=== PATIENT | female | born 1970 | race Caucasian/White ===

== ENCOUNTER → 2021-09-19 | Outpatient (CLI) | payer BC ==
[2021-09-19 12:55] VITALS: BP 138/89; PULSE 79; RESP 13; TEMP 97.4
--- NOTE | 2021-09-19 13:40 | P.GSHP ---
History of Present Illness H&P Date: 09/19/21 Chief Complaint: abnormal right breast mammogram Angelica is a 51-year-old white female seen in consultation for Clarice Liao regarding the radiographic abnormality of the right breast. [place] [address] which revealed architectural dist ortion in the right breast at the 1 o'clock position. There was a suggestion of an irregular spiculated mass. [place] subsequently [place] [address]. A possible area of 1.2 cm distortion in the posterior 1 o'clock position right breast persisted. Ultrasound evaluation was then recommended. Ultrasound of the right breast was performed and [address]. No discrete solid or cystic area was identified. Patient does not feel any discrete lumps masses or not his of concern in either breast. She states she does feel some pulling near the nipple in the right breast. She has never had any surgery on her breast in the past. She is not having any breast biopsies in the past. She is not complaining of any recent trauma or infection in the breast. She is not complaining of any nipple discharge or skin changes of the breast. Caffeine: 2 cups/day nicotine: stopped 10 years ago, used to smoke 1/PPD for 20 years chocolate: none BCP: stopped 20 years ago, used them for about 10 years hormones: none Family History: patient skin cancer on foot 2 brothers; skin cancer mother: skin cancer paternal aunt: breast cancer Hormonal History: menarche: 13 G0 menopause: periods still regular hormones: none Surgical History: tonsil foot done in office wisdom teeth Medical History: HTN Social History: Imaging: Negative, stopped 10 years ago Alcohol: weekends, 20 beers on weekend drugs: none - Constitutional Constitutional: Denies chills, Denies fever - EENT Eyes: denies blurred vision, denies pain Ears: deny: decreased hearing, tinnitus Ears, nose, mouth and throat: Denies headache, Denies sore throat - Breasts Breasts: bilateral: as per HPI - Cardiovascular Cardiovascular: Denies chest pain, Denies shortness of breath - Respiratory Respiratory: Denies cough, Denies 7 - Genitourinary (Female) Genitourinary: Denies dysuria, Denies hematuria - Menstruation Menstruation: Reports period normal - Musculoskeletal Musculoskeletal: Denies myalgias - Integumentary Integumentary: Reports as per HPI - Neurological Neurological: Denies numbness, Denies weakness - Psychiatric Psychiatric: Denies anxiety, Denies depression - Endocrine Endocrine: Denies fatigue, Denies weight change - Hematologic/Lymphatic Comment: baby aspirin daily - Allergic/Immunologic Allergic/Immunologic: Reports as per HPI Past Medical History Past Medical History: Cancer, Hypertension Additional Past Medical History / Comment(s): skin ca History of Any Multi-Drug Resistant Organisms: None Reported Past Surgical History: Tonsillectomy Additional Past Surgical History / Comment(s): skin ca left foot 2019, tonsillectomy 1975 Past Anesthesia/Blood Transfusion Reactions: No Reported Reaction Smoking Status: Former smoker - Past Family History Mother Family Medical History: Cancer Additional Family Medical History / Comment(s): skin ca Medications and Allergies Home Medications Medication Instructions Recorded Confirmed Type Aspirin [Adult Low Dose Aspirin EC] 81 mg PO DAILY 09/19/21 09/19/21 History lisinopriL 10 mg PO DAILY 09/19/21 09/19/21 History Allergies Allergy/AdvReac Type Severity Reaction Status Date / Time No Known Allergies Allergy Verified 09/19/21 12:43 Surgical - Exam Vital Signs Temp Pulse Resp BP Pulse Ox 97.4 F L 79 13 138/89 98 09/19/21 12:47 09/19/21 12:47 09/19/21 12:47 09/19/21 12:47 09/19/21 12:47 BMI: 22.8 - General no distress - Eyes normal ocular movement - Neck trachea midline - Respiratory normal respiratory effort, clear to auscultation - Cardiovascular Rhythm: regular Heart Sounds: normal: S1, S2 - Abdomen Abdomen: soft - Integumentary normal turgor - Neurologic no disoriented, no combative - Musculoskeletal normal gait, normal posture - Psychiatric oriented to time, oriented to person, oriented to place, speech is normal, memory intact Breast Exam: BRA: 36C Inspection: Bilateral grade 1/2 ptosis Palpation: Right breast: Multiple positional exam no discrete dominant masses or nodules of concern Right axilla: No adenopathy of concern Left breast: Positional exam fibrocystic changes no dominant masses or nodules of concern Left axilla: No adenopathy of concern Results Radiographs reviewed in detail with Dr. Stern Assessment and Plan Assessment: Impression: Abnormal right breast mammogram Fibrocystic breast changes Family history of cancer Plan: 3-D stereo biopsy right breast Follow up after 3-D stereo biopsy Cc: Clarice Bennett, Dr. Miguel Angel Osman
== END ==
LOC: WWCWWP 12:37
PROVIDERS: ATTEND Surgery
DX: N60.12 Diffuse cystic mastopathy of left breast (principal); R92.8 Other abnormal and inconclusive findings on diagnostic imaging of breast; Z80.3 Family history of malignant neoplasm of breast; I10 Essential (primary) hypertension; Z87.891 Personal history of nicotine dependence

== ENCOUNTER → 2021-10-07 | Outpatient (CLI) | payer BC ==
[2021-10-07 15:53] VITALS: BP 174/96; PULSE 75; RESP 18; TEMP 98.5
--- NOTE | 2021-10-07 16:59 | P.PN ---
Subjective Progress Note Date: 10/07/21 Principal diagnosis: right breast stage IA invasive ductal carcinoma Angelica is a 51-year-old white female seen in consultation for Clarice Liao regarding the radiographic abnormality of the right breast. [place] [address] which revealed architectural distortion in the right breast at the 1 o'clock position. There was a suggestion of an irregular spiculated mass. She subsequently [place] [address]. A possible area of 1.2 cm distortion in the posterior 1 o'clock position right breast persisted. Ultrasound evaluation was then recommended. Ultrasound of the right breast was performed [place] [address]. No discrete solid or cystic area was identified. Patient does not feel any discrete lumps masses or not his of concern in either breast. She states she does feel some pulling near the nipple in the right breast. She has never had any surgery on her breast in the past. She is not having any breast biopsies in the past. She is not complaining of any recent trauma or infection in the breast. She is not complaining of any nipple discharge or skin changes of the breast. She underwent an ultrasound core biopsy on 10-02-21 which was + for G1 invasive ductal cancer.T1N0M0 ER+Pr+Her2-, stage IA. She tolerated the procedure without difficulty. Caffeine: 2 cups/day nicotine: stopped 10 years ago, used to smoke 1/PPD for 20 years chocolate: none BCP: stopped 20 years ago, used them for about 10 years hormones: none Family History: patient skin cancer on foot 2 brothers; skin cancer mother: skin cancer paternal aunt: breast cancer Hormonal History: menarche: 13 G0 menopause: periods still regular hormones: none Surgical History: tonsil foot done in office wisdom teeth Medical History: HTN Social History: Imaging: Negative, stopped 10 years ago Alcohol: weekends, 20 beers on weekend drugs: none - Constitutional Constitutional: Denies chills, Denies fever - EENT Eyes: denies blurred vision, denies pain Ears: deny: decreased hearing, tinnitus Ears, nose, mouth and throat: Denies headache, Denies sore throat - Breasts Breasts: bilateral: as per HPI - Cardiovascular Cardiovascular: Denies chest pain, Denies shortness of breath - Respiratory Respiratory: Denies cough, Denies 7 - Genitourinary (Female) Genitourinary: Denies dysuria, Denies hematuria - Menstruation Menstruation: Reports period normal - Musculoskeletal Musculoskeletal: Denies myalgias - Integumentary Integumentary: Reports as per HPI - Neurological Neurological: Denies numbness, Denies weakness - Psychiatric Psychiatric: Denies anxiety, Denies depression - Endocrine Endocrine: Denies fatigue, Denies weight change - Hematologic/Lymphatic Comment: baby aspirin daily - Allergic/Immunologic Allergic/Immunologic: Reports as per HPI Objective - Vital Signs Vital signs: Vital Signs Temp 98.5 F 10/07/21 15:51 Pulse 75 10/07/21 15:51 Resp 18 10/07/21 15:51 BP 174/96 10/07/21 15:51 Pulse Ox 99 10/07/21 15:51 Intake & Output 10/06/21 10/07/21 10/07/21 18:59 06:59 18:59 Weight 68.039 kg - Constitutional General appearance: Present: cooperative - EENT Eyes: Present: EOMI ENT: Present: hearing grossly normal - Neck Neck: Present: normal ROM - Integumentary Integumentary Comment(s): Mild ecchymosis at biopsy site Assessment and Plan Assessment: Impression: Stage IA right breast invasive ductal carcinoma T1 N0 M0 ER/WA positive HER-2/trse negative G1 Plan: 1. Genetic testing 2. Bilateral breast MRI 3. Presentation of case at tumor board 4. Treatment options were discussed with the patient surgical options are lumpectomy plus or radiation versus mastectomy plus or minus reconstruction. At this time the patient would prefer a lumpectomy. The patient will be seen following her genetic testing and bilateral breast MRI and presentation of case at tumor board. At the present time we are going to obtain a date to proceed with most likely needle localization of the right breast cancer, lumpectomy, possible onco-plastic tissue transfer, sentinel node injection, sentinel node biopsy, possible axillary node dissection. Risk and benefits of the procedures were discussed with the patient and her sister the understand and wish to proceed.
== END ==
LOC: WWCWWP 15:34
PROVIDERS: ATTEND Surgery
DX: C50.911 Malignant neoplasm of unspecified site of right female breast (principal); I10 Essential (primary) hypertension; Z17.0 Estrogen receptor positive status [ER+]; Z87.891 Personal history of nicotine dependence

== ENCOUNTER → 2021-10-15 | Outpatient (CLI) | payer BC ==
--- NOTE | 2021-10-17 07:06 | BMR ---
EXAMINATION TYPE: MR breast BILAT wo/w con DATE OF EXAM: 10/15/2021 COMPARISON: Prior outside mammogram August 05, 2021 BI-RADS 0. Diagnostic outside right breast mammogr am August 12, 2021 BI-RADS 0. Diagnostic outside right breast ultrasound BI-RADS 1. Also note BI-RADS 4 for recent diagnostic mammogram. HISTORY: Right Breast Cancer on outside biopsy recently October 02, 2021 invasive ductal carcinoma.. TECHNIQUE: A series of fat and water weighted images in the long and short axis views of both breasts are obtained in conjunction with dynamic contrast MRI with subtraction technique. The patient was i njected with 7.5 mL intravenous Gadavist gadolinium contrast. Three-dimensional and additional post processing imaging is created on independent workstation and reviewed during official interpretation of this study. FINDINGS: Extremely dense fibroglandular tissue bilaterally is redemonstrated. T2 and STIR weighted i mages show no significant cystic lesions or focal fluid collections in either breast. There is no pauline picious axillary adenopathy seen bilaterally. Dynamic postcontrast imaging shows mild background enha ncement bilaterally. Delayed dynamic imaging shows no suspicious internal mammary adenopathy. With regards to the left breast. There is no pathologic enhancement or enhancing masses greater than 5 mm small round enhancing focus lateral upper left breast image 873 series 701 slightly stands out b ut size suggests benign etiology. Additional occasional tiny smaller foci of enhancement are present. No abnormal skin thickening. Chest wall is intact. With regards to the right breast. There is spiculated enhancing lesion measuring approximately 1.3 x 1.2 cm with artifact from biopsy clip along the medial margin in the upper slightly inner aspect terri esponding to 1:00 lesion on ultrasound approximately 6 cm distance from nipple corresponding to new b iopsy-proven malignancy. There is a smaller oval well-circumscribed enhancing 6 mm lesion also in the upper and inner quadrant more posterior in location more medial and superior location image 91 serie s 701 T1 hypointensity and T2 hyperintensity. This is slightly more prominent in size versus smaller areas of nodularity and enhancement does show some areas of washout. No abnormal skin thickening is s een. Chest wall is intact. No suspicious incidental findings. IMPRESSION: MRI findings correlate with recent ultrasound, spiculated malignancy in the right breast upper slight inner aspect measuring near 1.3 cm long axis. Nonspecific enhancing round well-circumscr ibed 7 mm focus in close proximity to the biopsy-proven cancer No convincing MRI evidence for invasiv e malignancy in the left breast. BI-RADS 6 biopsy-proven cancer right breast. BI-RADS 2 benign findings left breast. Recommendation: Second look ultrasound targeting the 7 mm round enhancing lesion posterior the inner upper left breast just superior and medial to the biopsy proven neoplasm if this will change manageme nt.
== END | disposition home or self-care (01) ==
LOC: RADMRIMAIN 07:56
PROVIDERS: ATTEND Surgery
DX: C50.911 Malignant neoplasm of unspecified site of right female breast (principal); C50.912 Malignant neoplasm of unspecified site of left female breast
CPT/HCPCS: 77049; C8937; A9585

== ENCOUNTER → 2021-11-04 | Outpatient (CLI) | payer BC ==
--- NOTE | 2021-11-05 12:58 | USB ---
Reason for Exam: MRI abnormality. Patient History: 10/02/2021, Ultrasound-Guided Core Biopsy on the Right side. Risk Values: Kyra 5 year model risk: 0.8%. NCI Lifetime model risk: 6.7%. Technique: Method: Targeted. Prior Study Comparison: 07/24/2020 Bilateral MG screening mammo w CAD - 2, [facility]. 08/05/2021 Bilateral MG screening mammo w CAD - 2, [facility]. 08/12/2021 Right MG 3D diag mammo w/cad RT - 2, [facility]. Findings: Finding 1: Mass. Laterality: Right. Size 6 x 4 x 6 mm. 1 O'clock Quadrant: Upper inner. 12 cm cm from nipple. Shape: Irregular. Orientation: Not Parallel. Margin: Spiculated. The patient's 10/15/2021 MRI is reviewed. Second Look targeted ultrasound is performed at the 1:00 position. We note the patient's biopsy proven malignancy at the 1:00 site. Approximately 4.9 cm located more peripherally, 12 cm from the nipple, there is a 6 x 6 x 4 mm vertically oriented hypoechoic lesion that is highly suspicious and for which biopsy is recommended. Overall Assessment: Suspicious, BI-RAD 4 Management: Ultrasound Core Biopsy of the right breast. 1. After second look ultrasound, we find a 6 mm lesion 12 cm from the nipple at 1:00 that appears to correspond to the suspicious area on MRI. The more centrally located 1:00 lesion corresponds to biopsy-proven breast cancer. On ultrasound, there is approximately 5 cm of separation. Biopsy of this smaller second area is recommended. Electronically signed and approved by: Zahraa Haddad M.D. Radiologist
== END | disposition home or self-care (01) ==
LOC: RADUSWWP 12:21
PROVIDERS: ATTEND Surgery
DX: R92.8 Other abnormal and inconclusive findings on diagnostic imaging of breast (principal)
CPT/HCPCS: 77065; 19083; 76642; A4648

== ENCOUNTER → 2021-11-14 | Outpatient (CLI) | payer BC ==
[2021-11-14 16:15] VITALS: BP 159/96; PULSE 82; RESP 16; TEMP 98.5
--- NOTE | 2021-11-14 16:50 | P.PN ---
Subjective Progress Note Date: 11/14/21 Principal diagnosis: Focal invasive ductal carcinoma of the right breast right breast stage IA invasive ductal carcinoma Angelica is a 51-year-old white female seen in consultation for Clarice Liao regarding the radiographic abnormality of the right breast. [place] [address] which revealed architectural distortion in the right breast at the 1 o'clock position. There was a suggestion of an irregular spiculated mass. She subsequently [place] [address]. A possible area of 1.2 cm distortion in the posterior 1 o'clock position right breast persisted. Ultrasound evaluation was then recommended. [place] [address]. No discrete solid or cystic area was identified. Patient did not feel any discrete lumps masses or nodules of concern in either breast. She states she does feel some pulling near the nipple in the right breast. She has never had any surgery on her breast in the past. She is not having any breast biopsies in the past. She is not complaining of any recent trauma or infection in the breast. She is not complaining of any nipple discharge or skin changes of the breast. She underwent an ultrasound core biopsy on 10-02-21 which was + for G1 invasive ductal cancer.T1N0M0 ER+Pr+Her2-, stage IA. She tolerated the procedure without difficulty. [place] [address]. This revealed a spiculated enhancing lesion in the right breast as well as a smaller oval well- circumscribed 6 mm lesion in the upper inner quadrant more posterior. [place] [address] and was positive for invasive well-differentiated ductal carcinoma. This was a G1 ER/WA positive HER-2/tres negative tumor. Secondary to 2 primaries in the same breast the concern was entertained for a mastectomy rather than a lumpectomy. No lesions of concern were identified in the left breast. Her case was presented at tumor board on 10-28-21. The results are consistent with multifocal disease in the right breast. She had genetic testing done which was negative. Caffeine: 2 cups/day nicotine: stopped 10 years ago, used to smoke 1/PPD for 20 years chocolate: none BCP: stopped 20 years ago, used them for about 10 years hormones: none Family History: patient skin cancer on foot 2 brothers; skin cancer mother: skin cancer paternal aunt: breast cancer Hormonal History: menarche: 13 G0 menopause: periods still regular hormones: none Surgical History: tonsil foot done in office wisdom teeth Medical History: HTN Social History: Imaging: Negative, stopped 10 years ago Alcohol: weekends, 20 beers on weekend drugs: none - Constitutional Constitutional: Denies chills, Denies fever - EENT Eyes: denies blurred vision, denies pain Ears: deny: decreased hearing, tinnitus Ears, nose, mouth and throat: Denies headache, Denies sore throat - Breasts Breasts: bilateral: as per HPI - Cardiovascular Cardiovascular: Denies chest pain, Denies shortness of breath - Respiratory Respiratory: Denies cough - Genitourinary (Female) Genitourinary: Denies dysuria, Denies hematuria - Menstruation Menstruation: Reports period normal - Musculoskeletal Musculoskeletal: Denies myalgias - Integumentary Integumentary: Reports as per HPI - Neurological Neurological: Denies numbness, Denies weakness - Psychiatric Psychiatric: Denies anxiety, Denies depression - Endocrine Endocrine: Denies fatigue, Denies weight change - Hematologic/Lymphatic Comment: baby aspirin daily - Allergic/Immunologic Allergic/Immunologic: Reports as per HPI Objective - Vital Signs Vital signs: Vital Signs Temp 98.5 F 11/14/21 16:13 Pulse 82 11/14/21 16:13 Resp 16 11/14/21 16:13 BP 159/96 11/14/21 16:13 Pulse Ox 99 11/14/21 16:13 FiO2 Intake & Output 11/13/21 11/14/21 11/14/21 18:59 06:59 18:59 Weight 68.039 kg - Exam BMI: 22.8 - Constitutional General appearance: Present: cooperative - EENT Eyes: Present: EOMI - Neck Neck: Present: normal ROM - Respiratory Respiratory: bilateral: CTA - Cardiovascular Rhythm: regular Heart sounds: normal: S1, S2 - Gastrointestinal General gastrointestinal: Present: soft - Integumentary Integumentary: Present: normal turgor - Musculoskeletal Musculoskeletal: Present: gait normal - Psychiatric Psychiatric: Present: A&O x's 3, appropriate affect, intact judgment & insight - Additional findings Additional findings: Breast Exam: BRA: 36C Inspection: biopsy sites clean and dry Palpation not re done Assessment and Plan Assessment: Impression: multifocal invasive right breast cancer Plan: appointment with plastic surgery/ consideration of mastectomy with reconstruction consider nipple sparing mastectomy and right sentinel node injection and sentinel node biopsy possible axillary node dissection CC: Dr. Osman
== END ==
LOC: WWCWWP 15:52
PROVIDERS: ATTEND Surgery
DX: C50.911 Malignant neoplasm of unspecified site of right female breast (principal); I10 Essential (primary) hypertension

== ENCOUNTER 2021-12-02 06:47 | Day surgery (SDC) | payer BC ==
[2021-11-27 10:16] VITALS: BMI 22.8
[~2021-12-02 06:47] MED LIST: DEXAMETHASONE SOD PHOSPHATE 4 MG/ML 1 ML VIAL IV ONE; HEPARIN SODIUM,PORCINE/PF 5,000 UNIT/0.5 ML SYRINGE SQ PRN; LACTATED RINGERS 1,000 ML IV SCH; LIDOCAINE 1% (10MG/ML) FOR IV START INTRADERMA PRN; ONDANSETRON 4 MG/2 ML VIAL IVP ONE; Pre Op ABX Message 1 EACH MISC MISCELLANE ONE; SCOPOLAMINE 1 MG/72 HR PATCH TRANSDERM ONE
[2021-12-02] MEDS ORDERED: METOCLOPRAMIDE 5 MG/ML 2 ML VIAL IVP PRN (07:00)
[2021-12-02] MEDS ORDERED: MIDAZOLAM 2 MG/2 ML VIAL IVP ONE (08:27)
--- NOTE | 2021-12-02 08:27 | NM ---
EXAMINATION TYPE: NM sentinel node injection DATE OF EXAM: 12/02/2021 COMPARISON: NONE HISTORY: Breast cancer TECHNIQUE AND FINDINGS: The procedure of sentinel lymph node injection was explained to the patient. The benefits, alternatives, and risks were discussed. An informed consent was then obtained. Overlying skin is cleaned with sterile alcohol. Following this, 543 uCi Tc99m Tilmanocept was inject ed in the upper outer aspect of the right nipple intradermally. The patient tolerated the procedure well without any immediate complication. The patient was kept in the radiology department for short stay after the procedure and then taken to surgery for surgical p rocedure what is presumed intraoperative gamma probe will be used for sentinel lymph node detection. IMPRESSION: Right breast radiotracer injection for sentinel node localization as above.
--- NOTE | 2021-12-02 08:45 | P.NAPBC ---
[facility] Queries - [facility] Queries Was patient's case review presented at [facility] tumor board? If no, comment.: Yes Was patient's pathology reviewed at [facility]? If no, comment.: Yes Was breast conservation surgery offered? If no, comment.: Yes (multifocal) Was sentinel node biopsy offered? If no, comment.: Yes Was diagnosis confirmed by percutaneous core biopsy? If no, comment.: Yes Is patient mastectomy patient?: Yes Was a preop referral to reconstructive surgeon offered?: Yes [facility] Comments: stage IA/ multifocal tumor right breast Clinical Stage: stage IA
[2021-12-02] MEDS ORDERED: SUCCINYLCHOLINE CHLORIDE 100 MG/5 ML SYR IV ONE (08:46)
[2021-12-02] MEDS ORDERED: fentaNYL (PF) 50 MCG/ML 2 ML AMP ONE (08:46)
[2021-12-02] MEDS ORDERED: KETAMINE 10 MG/ML 20 ML VIAL ONE (08:46)
[2021-12-02] MEDS ORDERED: GLYCOPYRROLATE 0.2 MG/ML 2 ML VIAL ONE (08:46)
[2021-12-02] MEDS ORDERED: PROPOFOL 10 MG/ML 20 ML VIAL IV ONE (08:46)
[2021-12-02] MEDS ORDERED: LIDOCAINE 2% INJ 20 MG/ML (2 ML VIAL) ONE (08:46)
[2021-12-02] MEDS ORDERED: MIDAZOLAM 2 MG/2 ML VIAL ONE (08:46)
[2021-12-02] MEDS ORDERED: NEOSTIGMINE 1 MG/ML 10 ML VIAL ONE (08:46)
[2021-12-02] MEDS ORDERED: ROCURONIUM 10 MG/ML (5 ML VIAL) IV ONE (08:46)
[2021-12-02] MEDS ORDERED: ceFAZolin 1,000 MG VIAL IVPB ONE (08:51)
[2021-12-02] MEDS ORDERED: NALOXONE 0.4 MG/ML 1 ML VIAL IV PRN (11:33)
[2021-12-02] MEDS ORDERED: HYDROmorphone 1 MG/ML 1 ML SYRINGE IVP PRN (11:33)
[2021-12-02] MEDS ORDERED: ONDANSETRON 4 MG/2 ML VIAL IVP PRN (11:33)
--- NOTE | 2021-12-02 11:33 | P.OP ---
Date of Procedure: 12/02/21 Preoperative Diagnosis: Right breast multifocal invasive ductal carcinoma Postoperative Diagnosis: Same Procedure(s) Performed: Bilateral skin sparing mastectomy with right breast sentinel node biopsy Anesthesia: LUIS CARLOS Surgeon: Savannah Murray Estimated Blood Loss (ml): 15 IV fluids (ml): 700 Pathology: other (Bilateral breast, right sentinel node biopsy) Condition: stable Disposition: floor Indications for Procedure: Right breast multifocal invasive ductal carcinoma Operative Findings: Dense breast tissue Description of Procedure: The patient is a 51-year-old white female diagnosed with invasive ductal carcinoma and 2 sites in the right breast. Secondary to multifocal disease the patient opted for a bilateral mastectomy. A preoperative sentinel node injection of the right side was performed. In the preoperative area she was seen in conjunction with Dr. Love and markings were placed for a skin sparing mastectomy. This was after discussion with the patient and she opted for this procedure rather than a nipple sparing mastectomy. The patient was then brought to the operative suite. Following induction of anesthesia the neoprobe was used to interrogate the axilla. Radioactivity was noted in the axilla. The patients bilateral breast and right axilla were prepped and draped in a sterile fashion. The left breast was approached initially. Using a circumareolar incision skin flaps were developed. The skin flaps were developed down to the pectoralis major muscle. The breast was dissected from the muscle being careful to maintain hemostasis using the electrocautery device as well as the Harmonic scalpel. The breast tissue was removed. The breast was marked with short superior suture and a long lateral suture. After we were assured that hemostasis was attained the wound was well irrigated. The wound was packed. Instruments and gowns were changed and the right breast was approached. The area of the axilla was approached initially. Using the neoprobe the area of greatest radioactivity was identified. Incision was made over this area and dissection was performed down into the axilla. 2 radioactive lymph nodes were identified and were removed using the Harmonic scalpel as well as the Bovie. The first lymph node had a 10 second count of 77,352 and the second node had a 10 second count of 1272. The background count in the axilla was minimal. No additional lymph nodes of concern were palpated. The area of the breast was then approached. A circumareolar incision was made. This was carried down into the plane between the breast tissue and the subcutaneous tissue. Circumferential dissection was performed removing the breast tissue from the subcutaneous tissue. This was dissected down to the area of the pectoralis muscle. The breast was brought off the pectoralis muscle being careful to maintain hemostasis using electrocautery device and harmonic scalpel. After the breast was removed a short suture was placed superiorly and a long suture was placed laterally. The wound was well irrigated. At this time Dr. Love came in to do the reconstruction.
[2021-12-02] MEDS: HYDROmorphone 0.5 MG/0.5 ML SYRINGE IVP PRN ×4 (12:35→13:18)
[2021-12-02] MEDS: HYDROcodone/APAP 5-325MG 1 EACH TAB PO PRN ×2 (15:21→22:10)
[2021-12-02] MEDS: DEXTROSE 5%-0.45% NACL 1,000 ML IV SCH (17:27)
[2021-12-03] MEDS: HYDROcodone/APAP 5-325MG 1 EACH TAB PO PRN ×3 (02:18→12:35)
[2021-12-03] MEDS: DEXTROSE 5%-0.45% NACL 1,000 ML IV SCH (04:10)
[2021-12-03 07:05] LABS: Basophils % (A) 1 %; Eosinophils # (A) 0.1 k/uL (0-0.7); Eosinophils % (A) 2 %; HCT 35.2 % (34.0-46.0); HGB 11.9 gm/dL (11.4-16.0); Lymphocytes # (A) 2.1 k/uL (1.0-4.8); Lymphocytes % (A) 23 %; MCH 32.6 pg (25.0-35.0); MCHC 33.7 g/dL (31.0-37.0); MCV 96.9 fL (80.0-100.0); Mean Platelet Volume 6.6; Monocytes # (A) 0.5 k/uL (0-1.0); Monocytes % (A) 5 %; Neutrophils # (A) 6.3 k/uL (1.3-7.7); Neutrophils % (A) 68 %; Platelet Count 365 k/uL (150-450); RBC 3.64 m/uL (3.80-5.40); RDW 12.4 % (11.5-15.5); WBC 9.2 k/uL (3.8-10.6)
--- NOTE | 2021-12-03 10:06 | P.PN ---
Subjective Progress Note Date: 12/03/21 Principal diagnosis: Postop day #1 bilateral skin sparing mastectomies with right sentinel node biopsy for multifocal right breast cancer Angelica is a 51-year-old white female status post bilateral skin sparing mastectomies with immediate implant reconstruction and sentinel node biopsy on the right postop day #1. She is doing well at this time with no complaints. Her DONTE output is serous in nature on the left 60 mL of amylase 65 mL. Objective - Vital Signs Vital signs: Vital Signs Temp 98.2 F 12/03/21 04:16 Pulse 81 12/03/21 04:16 Resp 18 12/03/21 04:16 BP 120/61 12/03/21 04:16 Pulse Ox 98 12/03/21 04:16 FiO2 Intake & Output 12/02/21 12/03/21 12/03/21 18:59 06:59 18:59 Intake Total 1750 600 Output Total 325 325 200 Balance 1425 275 -200 Weight 68.6 kg Intake: IV 1750 Oral 600 Output: Drainage 85 125 Left Chest 35 60 Right Chest 50 65 Urine 200 200 200 Estimated Blood Loss 40 Other: # Voids 2 2 - Constitutional General appearance: Present: cooperative - EENT Eyes: Present: EOMI ENT: Present: hearing grossly normal - Neck Neck: Present: normal ROM - Respiratory Respiratory: bilateral: CTA - Cardiovascular Rhythm: regular Heart sounds: normal: S1, S2 - Integumentary Integumentary Comment(s): Incisions bilateral clean and dry, Incision right axilla clean and dry Bilateral DONTE drains serosanguineous in nature - Psychiatric Psychiatric: Present: A&O x's 3, appropriate affect, intact judgment & insight - Labs CBC & Chem 7: 12/03/21 06:49 Labs: Abnormal Lab Results - Last 24 Hours (Table) 12/03/21 Range/Units 06:49 RBC 3.64 L (3.80-5.40) m/uL Assessment and Plan Assessment: Impression: Patient doing well postop day #1 bilateral skin sparing mastectomies with right sentinel node biopsy, bilateral subpectoral arch cushion press operator placement for reconstruction Plan: Discharge home Patient would like to have home health care to help with the drains Follow-up with Dr. Gr in 1 week Follow up with Dr. Love
--- NOTE | 2021-12-03 10:09 | P.DS ---
Providers Date of admission: 12-02-21 Expected date of discharge: 12/03/21 Attending physician: Savannah Murray Primary care physician: [facility] Hospital Course: The patient is a 51-year-old white female with multifocal invasive ductal carcinoma right breast. She underwent bilateral skin sparing mastectomies as well as a right sentinel node biopsy on . Additionally she underwent subpectoral cow tender placement for reconstruction. Postprocedure she has done well with no complications or complaints. Plan - Discharge Summary Discharge Rx Participant: Yes New Discharge Prescriptions: No Action lisinopriL [Prinivil] 10 mg PO DAILY Aspirin [Adult Low Dose Aspirin EC] 81 mg PO DAILY Multivitamins, Thera [Multivitamin (formulary)] 1 tab PO DAILY Discharge Medication List Aspirin [Adult Low Dose Aspirin EC] 81 mg PO DAILY 09/19/21 [History] lisinopriL [Prinivil] 10 mg PO DAILY 09/19/21 [History] Multivitamins, Thera [Multivitamin (formulary)] 1 tab PO DAILY 11/27/21 [History] Follow up Appointment(s)/Referral(s): Savannah Murray MD [STAFF PHYSICIAN] - 12/11/21 4:00 pm (12/11/2021 4:00) [facility], [NON-STAFF] - 1 Week Ruben Farrell MD [STAFF PHYSICIAN] - 1 Week Activity/Diet/Wound Care/Special Instructions: Teaching patient drain care May shower after [address] until seen by Dr. Gr Discharge Disposition: HOME WITH HOME HEALTH SERVICES
[2021-12-03 13:28] VITALS: BP 131/75; PULSE 83; RESP 16; TEMP 98.3
--- NOTE | 2021-12-03 21:36 | OP ---
OPERATIVE REPORT DATE OF SURGERY: 12/02/2021. SURGEON: Dr. Ruben Farrell PREOPERATIVE DIAGNOSIS: 1. Breast cancer. 2. Acquired loss, right and left breasts. POSTOPERATIVE DIAGNOSIS: 1. Breast cancer. 2. Acquired loss, right and left breasts. OPERATIVE PROCEDURES: 1. Immediate reconstruction right breast following mastectomy with insertion of tissue rehab director occupational therapist and subsequent outpatient expansion. 2. Immediate reconstruction left breast following mastectomy with insertion of tissue rehab director occupational therapist and subsequent outpatient expansion. 3. Implantation of reconstructive graft for right and left breast reconstruction. OPERATIVE INDICATIONS: The patient is a 51-year-old female with breast cancer of the right breast who was referred to my care for breast reconstruction purpose. The patient plans to undergo bilateral mastectomy procedures and desires reconstruction. She has elected to proceed with a tissue rehab director occupational therapist style reconstruction and understands the staged nature of breast reconstruction as well as potential risks and complications related to today's surgeries. She has requested I perform the surgery. OPERATIVE PROCEDURE SUMMARY: The patient was seen in the preoperative area, markings made, procedure reviewed, all questions answered. The patient was transported back to the operating room, where she was placed in supine position. Following induction of general tracheal anesthesia, the patient was prepped and draped in usual fashion. Dr. Murray and her surgical team then proceeded with the left and right mastectomy procedures and right sentinel lymph node excision. Once the procedures were completed, I came to the operative suite. The patient was in supine position under general endotracheal anesthesia. There was no active bleeding from either mastectomy wound site. All sponge and needle counts from the prior procedure were correct. Reconstruction was initiated on the left side, identifying the pectoralis major muscle where it joined the chest wall along the lateral aspect. Loose connective tissue was divided with cautery here, allowing entry into the potential plane between the pectoralis major and minor muscles, which was bluntly developed. Medial attachment fibers of the pectorals major muscle were released with cautery. All inferior rib attachments of the pectorals major muscle were released with cautery. Additional muscle tissue was required for reconstructive purpose. Inferomedially, rectus abdominis muscle and fascia, inferolaterally external abdominal oblique muscle and fascia, and laterally serratus anterior muscle and fascia were all elevated with cautery through this access point. Hemostasis was maintained with cautery while dissecting. Once a sufficient-sized submuscular reconstructive pocket was created, the site was packed with multiple laparotomy sponges. Attention was turned toward the right side. Again the pectoralis major muscle was then identified along the lateral border with the chest wall. Loose connective tissue was divided with cautery here. This allowed entry into the potential plane between the pectoralis major minor and muscles, which was bluntly developed. Medial attachment fibers of the pectorals major muscle of the ribs were released with cautery, as were all inferior attachments. Additional muscle tissue was required for reconstructive purposes. Inferomedially, rectus abdominis muscle and fascia, inferolaterally external abdominal oblique muscle and fascia, and laterally serratus anterior muscle and fascia were all elevated with the cautery. Hemostasis was maintained with cautery while dissecting. Once a sufficient-sized submuscular reconstructive pocket was created, dissection stopped. The two sides were compared, minor adjustments made to optimize symmetry. The cavities were now sized for tissue expanders. Both expanders measured 650 mL from the [facility] tissue rehab director occupational therapist line, reference #[id number]. The serial number for the right side was [id number] and for the left side [id number]. Each device was opened and only handled by the surgeon. All air was extracted from each device and 50 mL of 0.9 normal saline instilled. The tissue expanders were placed in the reconstructive pockets under direct vision. Orientation was assured. The muscle flap tissue on either side could not be closed without distorting the rehab director occupational therapist or placing significant tension on the muscle. Therefore SurgiMend reconstructive graft measuring 10 x 15 cm thin and meshed was opened on the field and revitalized with room-temperature saline. Once ready, it was divided into equal portions and one piece placed in each reconstructive cavity in the area where the muscle could not be approximated without significant tension in a modified inferior sling orientation. The graft was placed over the rehab director occupational therapist but deep to the muscle flap and then inset to the muscle flap using short running interrupted 3-0 Vicryl sutures. Complete coverage of each rehab director occupational therapist was obtained in this manner. Each tissue rehab director occupational therapist was now filled to a volume of 300 mL using normal saline. This appeared to be the optimal amount. The surgical jesus were now irrigated. Hemostasis was excellent. Two 19 round Juan drains were opened on the field and one drain inserted in each reconstructive cavity above the muscle flap deep to the skin flaps and brought out through separate stab incisions in the right or left anterolateral chest wall and sutured in place with 2-0 Prolene. The circumareolar mastectomy incisions were now closed in a pursestring fashion using deep dermal 2-0 Prolene for the pursestring suture followed by finer approximation of the dermis with inverted interrupted 4-0 Monocryl and then approximating the epidermal edges with paco. Surgical field was now cleansed with saline, dried and covered with postoperative bandages using Kerlix squares secured with 3M Medipore tape. The patient was then awakened from her anesthetic, extubated, and transferred to the recovery room in good condition with stable vital signs. There were no complications. The estimated blood loss for the procedure was 50 mL. MMODL / IJN: [id number] / MTDElisha
== END 2021-12-03 12:40 | disposition home health service (06) ==
LOC: OR 06:47 → 4FBP 13:38 → OR 12-03 12:40
PROVIDERS: ATTEND Surgery
DX: Z42.1 Encounter for breast reconstruction following mastectomy (principal); C50.211 Malignant neoplasm of upper-inner quadrant of right female breast; Z17.0 Estrogen receptor positive status [ER+]; Z87.891 Personal history of nicotine dependence; Z80.3 Family history of malignant neoplasm of breast; Z80.8 Family history of malignant neoplasm of other organs or systems; I10 Essential (primary) hypertension; Z79.82 Long term (current) use of aspirin; Z79.899 Other long term (current) drug therapy
CPT/HCPCS: 19303; 19357; 38525; 15777; 81025; 85025; 88342; 88307; 88309; 88341; 38792; A9520; J2250; J1100; J2710; J0690 ×3; J2405; J3010; J0330; J2704; J1170; J1644; J2001

== ENCOUNTER → 2021-12-11 | Outpatient (CLI) | payer BC ==
[2021-12-11 16:03] VITALS: BP 121/77; PULSE 79; RESP 17; TEMP 97.9
--- NOTE | 2021-12-11 16:43 | P.PN ---
Progress Note - Text Progress Note Date: 12/11/21 Angelica is a 51 year old white female status post bilateral mastectomy and right sentinel node biopsy/axillary node resection on . The left mastectomy revealed benign breast with fibrocystic changes, the right breast revealed invasive well-differentiated ductal carcinoma and low-grade DCIS margins -7 sentinel 7 axillary nodes were removed one node the sentinel node was positive for micrometastatic disease. The patient had additional tissue removed from the right breast area which did reveal invasive well-differentiated ductal carcinoma and low-grade DCIS. Invasive tumor involved the cauterized resection margin. Resection was to the subcutaneous tissue under the skin and therefore we will talk to radiation oncology about possibly adding some radiation therapy. The patient tolerated the surgery without difficulty. She is doing well at this time Physical examination: The incisions on the breasts are clean and dry and well-healed incision in the right arm clean and dry and well-healed lungs: clear heart: RRR Impression: positive margin of mastectomy at one site micrometastatic disease one node Plan: appointment with medical and radiation oncology follow up here 1 month CC: Dr. Miguel Angel Osman
== END ==
LOC: WWCWWP 15:52
PROVIDERS: ATTEND Surgery
DX: C50.911 Malignant neoplasm of unspecified site of right female breast (principal); D24.2 Benign neoplasm of left breast; Z90.13 Acquired absence of bilateral breasts and nipples

== ENCOUNTER → 2022-04-14 | Outpatient (CLI) | payer BC ==
[2022-04-14 10:00] VITALS: BP 150/90; PULSE 86; RESP 17; TEMP 98.9
--- NOTE | 2022-04-14 11:06 | P.HPOB ---
History of Present Illness H&P Date: 04/14/22 Chief Complaint: The patient is here for her routine gynecologic exam. This is a 51-year-old G0 with an LMP of 04/10/2022. The patient is here to establish with this office. Her partner is status post vasectomy. It has been about 3 years since her last pelvic exam. The patient states her menstrual periods were regular every month until recently. Her menstrual period in January was about 18 days late. She did not have a menstrual period in February. 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 She states she has not been sexually active since her breast surgery and November 2021. Review of Systems She gained about 10 pounds since her breast surgery in November 2021. She denies respiratory, cardiac, or GI problems. Past Medical History Past Medical History: Cancer, Hypertension Additional Past Medical History / Comment(s): skin ca(foot), RIGHT BREAST CANCER 2021(invasive well differentiated ductal CA) s/p BL mastectomies and radiation. 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 History of Any Multi-Drug Resistant Organisms: None Reported Past Surgical History: Breast Surgery, Tonsillectomy Additional Past Surgical History / Comment(s): skin ca left foot 2018, tonsillectomy 1975, RIGHT BREAST BIOPSY , LEFT ELBOW SURGERY FOR FX WITH HARDWARE, DOUBLE MASTECOMY 2021 ADDED SPACERS. Colonoscopy 2019(next after 10yr). Past Anesthesia/Blood Transfusion Reactions: No Reported Reaction Past Psychological History: No Psychological Hx Reported Smoking Status: Former smoker Past Alcohol Use History: Occasional (16 beers per week) Additional Past Alcohol Use History / Comment(s): STARTED SMOKING AT AGE 19 QUIT 10/28/11 SMOKED 1/2-1PPD. DRINKS 12-15 DRINKS A WEEK Past Drug Use History: None Reported Additional History: She has been twice. She has been with her current boyfriend since 2015 and they do not live together. 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 - Past Family History Mother Family Medical History: Cancer, Hypertension Additional Family Medical History / Comment(s): skin ca Brother(s) Family Medical History: Cancer Additional Family Medical History / Comment(s): skin ca melanoma Father Family Medical History: Hypertension Additional Family Medical History / Comment(s): Osteomyelitis Medications and Allergies Home Medications Medication Instructions Recorded Confirmed Type lisinopriL [Prinivil] 10 mg PO DAILY 09/19/21 04/14/22 History Multivitamins, Thera [Multivitamin 1 tab PO DAILY 11/27/21 04/14/22 History (formulary)] Tamoxifen [Nolvadex] 10 mg PO DAILY 04/14/22 04/14/22 History Allergies Allergy/AdvReac Type Severity Reaction Status Date / Time No Known Allergies Allergy Verified 04/14/22 09:56 Exam Vital Signs Temp Pulse Resp BP Pulse Ox 04/14/22 09:57 98.9 F 86 17 150/90 99 Intake and Output 04/13/22 04/14/22 04/14/22 22:59 06:59 14:59 Other: Weight 73.028 kg Height 5 feet 8 inches, weight 161 pounds, BMI 24.5. This is a well-developed well-nourished white female who is alert and oriented times 3 in no acute distress. HEENT: Within normal limits. NECK: Supple without mass or thyromegaly. CHEST AND LUNGS: Clear to auscultation. HEART: Regular rate and rhythm. BREASTS: Consistent with bilateral mastectomies with expanders in place. Nipples are absent. Central sutures are in place. There is no erythema and there are nontender. AXILLARY EXAM: Negative for adenopathy. BACK: Negative for CVA tenderness. ABDOMEN: Soft, nontender, without palpable masses. PELVIC EXAM: Normal external genitalia with minimal atrophy. Cervix and vagina appear normal with minimal atrophy. There is no unusual discharge. There is no evidence of prolapse. The uterus is retroverted, nongravid size and nontender. There are no palpable adnexal masses or tenderness. RECTAL EXAM: Rectovaginal exam is negative for mass or tenderness and is negative for occult blood. EXTREMITIES: Nontender. IMPRESSION: 1. 51-year-old perimenopausal female with recent oligomenorrhea without significant vasomotor symptoms, with normal gynecologic exam. 2. History of right breast cancer status post bilateral mastectomies, planning breast reconstruction. Currently expanders are in place. PLAN: 1. Pap smear cotest was performed. 2. Breast awareness was discussed with the patient. She will continue to follow up with Dr. Simón Stone, Dr. Grider, Dr. Farrell, and her radiation oncologist. 3. Osteoporosis prevention was discussed. I have stressed the importance of adequate calcium, vitamin D and regular exercise. Recommended amounts of calcium and vitamin D were also discussed. 4. The patient will keep a menstrual calendar and call if menstrual problems. She was also instructed to call if she is experiencing is bleeding after 12 months of amenorrhea. 5. She has completed her Covid vaccination series. 6. She was advised to return in one year for her annual well woman exam.
== END | disposition home or self-care (01) ==
LOC: WWCWWP 09:46
PROVIDERS: ATTEND Obstetrics & Gynecology
DX: Z53.9 Procedure and treatment not carried out, unspecified reason (principal)

== ENCOUNTER → 2022-09-23 | Outpatient (CLI) | payer BC ==
--- NOTE | 2022-09-23 11:27 | USB ---
Reason for Exam: Hx of breast cancer, mastectomy. Patient History: Breast cancer, right, age 51. 11/04/2021, Malignant US biopsy breast VAD RT on the right side. 10/02/2021, Ultrasound-Guided Core Biopsy on the Right side. Technique: Method: Whole Breast Handheld. Prior Study Comparison: 08/05/2021 Bilateral MG screening mammo w CAD - 2, [facility]. 08/12/2021 Right MG 3D diag mammo w/cad RT - 2, [facility]. 11/04/2021 Right MG diagnostic mammo RT wo CAD, [facility]. Findings: The whole breast of the right breast, the axilla of the right breast and the retroareolar of the right breast were scanned. A complete US of all four quadrants of the breast , axilla, and retro-areolar region were reviewed. No solid or cystic masses are identified. Patient is status post mastectomy with saline breast toys inspector in place. Sent for ultrasound of residual breast tissue. No solid or cystic lesion is seen throughout the breast. However, in the axilla, there is an oval hypoechoic lesion measuring 5 x 4 x 3 mm. Despite the posterior through-transmission, there is internal vascularity. Tissue sampling is advised. Overall Assessment: Suspicious, BI-RAD 4 Management: Ultrasound Core Biopsy of the right breast. Results were given to the patient verbally at the time of exam. Electronically signed and approved by: Zahraa Haddad M.D. Radiologist
== END | disposition home or self-care (01) ==
LOC: RADUSWWP 10:55
PROVIDERS: ATTEND Internal Medicine
DX: C50.211 Malignant neoplasm of upper-inner quadrant of right female breast (principal); Z71.3 Dietary counseling and surveillance; Z85.3 Personal history of malignant neoplasm of breast

== ENCOUNTER → 2022-10-07 | Day surgery (SDC) | payer BC ==
--- NOTE | 2022-10-12 08:46 | USB ---
Prior Study Comparison: 08/05/2021 Bilateral MG screening mammo w CAD - 2, [facility]. 08/12/2021 Right MG 3D diag mammo w/cad RT - 2, [facility]. 11/04/2021 Right MG diagnostic mammo RT wo CAD, [facility]. Pathology Description: Location: axilla. Marker Left Behind. Needle Type: Mammotome Cores: 3 Skin Nicks: 1 Gauge: 13 The procedure of ultrasound guided core biopsy was explained to the patient. Benefits, alternatives, and risks were discussed. An informed consent was then obtained. The patient was placed in supine positioning for imaging and for the procedure. The overlying skin was prepped and draped in usual sterile fashion. Lidocaine buffered with bicarbonate was used as anesthetic into the skin and subcutaneous tissue up to area of concern in the right axilla. A honey was made with surgical scalpel. Under ultrasound guidance, a 12-gauge vacuum assisted biopsy gun device was used to obtain 3 core samples. Following this, a biopsy clip was left in lesion. The patient tolerated the procedure well without any immediate complication. The patient was kept in the radiology department for short stay after the procedure and then discharged home in stable condition. Postprocedure mammogram: The patient was transferred to mammography for physician ordered post procedure mammogram for clip placement verification. Impression: Successful, uncomplicated ultrasound guided core biopsy of area of concern in the right breast, full pathology results to follow. Pathology Results: Result: Benign, Lymph node. RIGHT AXILLA, CORE BIOPSY: Benign lymph node and adjacent fibroadipose tissue. Overall Assessment: Benign Management: Diagnostic Breast Ultrasound of the right breast in 6 months. Electronically signed and approved by: Az Farley DO
== END ==
LOC: RADUSWWP 12:39
PROVIDERS: ATTEND Internal Medicine
DX: D24.1 Benign neoplasm of right breast (principal); Z85.3 Personal history of malignant neoplasm of breast
CPT/HCPCS: 88305; 19083; A4648

== ENCOUNTER → 2022-11-19 | Outpatient (CLI) | payer BC ==
[2022-11-19 15:52] VITALS: BP 131/85; PULSE 75; RESP 17; TEMP 98.3
--- NOTE | 2022-11-19 15:59 | P.PN ---
Subjective Progress Note Date: 11/19/22 stage IA right breast invasive ductal cancer 2021 multifocal invasive ductal carcinoma of the right breast Angelica is a 51-year-old white female seen in consultation for Clarice Liao regarding a radiographic abnormality of the right breast. [place] [address] which revealed architectural distortion in the right breast at the 1 o'clock position. There was a suggestion of an irregular spiculated mass. She subsequently underwent a right breast diagnostic mammogram on . A possible area of 1.2 cm distortion in the posterior 1 o'clock position right breast persisted. Ultrasound evaluation was then recommended. [place] [address]. No discrete solid or cystic area was identified. Patient did not feel any discrete lumps masses or nodules of concern in either breast. She states she does feel some pulling near the nipple in the right breast. She had never had any surgery on her breast in the past. She underwent an ultrasound core biopsy on 10-02-21 which was + for G1 invasive ductal cancer.T1N0M0 ER+Pr+Her2-, stage IA. She tolerated the procedure without difficulty. [place] [address]. This revealed a spiculated enhancing lesion in the right breast as well as a smaller oval well- circumscribed 6 mm lesion in the upper inner quadrant more posterior. [place] [address] and was positive for invasive well-differentiated ductal carcinoma. This was a G1 ER/TX positive HER-2/tres negative tumor. Secondary to 2 primaries in the same breast the concern was entertained for a mastectomy rather than a lumpectomy. No lesions of concern were identified in the left breast. Her case was presented at tumor board on 10-28-21. The results are consistent with multifocal disease in the right breast. She had genetic testing done which was negative. The patient opted for bilateral mastectomy and right SNB which was done on 12-02-21. Left mastectomy revealed benign breast with fibrocystic changes, the right breast revealed invasive well-differentiated ductal carcinoma low-grade DCIS. 7 axillary lymph nodes were removed one had microscopic disease. Additional breast tissue was removed from the right area which did reveal invasive well- differentiated ductal carcinoma low-grade DCIS. Invasive tumor involved the cauterized resection margin however the margin was to the subcutaneous tissue and therefore she was treated with radiation therapy. Oncotype score of 6 and did not have any chemotherapy. She is taking tamoxifen at this time. 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 She still has bilateral expanders in place she will have them replaced in December. Patient did have physical therapy after her initial surgery and did well with this secondary to decreased mobility of her right arm. Range of motion is back to normal at this time. Note Dr. Andrez Grider 10-14-22 reviewed Note radiation oncology 09-08-22 reviewed Caffeine: 2 cups/day nicotine: stopped 10 years ago, used to smoke 1/PPD for 20 years chocolate: none BCP: stopped 20 years ago, used them for about 10 years hormones: none Family History: patient skin cancer on foot 2 brothers; skin cancer mother: skin cancer paternal aunt: breast cancer Hormonal History: menarche: 13 G0 menopause: periods still regular hormones: none Surgical History: tonsil foot done in office wisdom teeth Medical History: HTN Social History: Imaging: Negative, stopped 10 years ago Alcohol: weekends, 20 beers on weekend drugs: none - Constitutional Constitutional: Denies chills, Denies fever - EENT Eyes: denies blurred vision, denies pain Ears: deny: decreased hearing, tinnitus Ears, nose, mouth and throat: Denies headache, Denies sore throat - Breasts Breasts: bilateral: as per HPI - Cardiovascular Cardiovascular: Denies chest pain, Denies shortness of breath - Respiratory Respiratory: Denies cough - Genitourinary (Female) Genitourinary: Denies dysuria, Denies hematuria - Menstruation Menstruation: Reports period normal - Musculoskeletal Musculoskeletal: Denies myalgias - Integumentary Integumentary: Reports as per HPI - Neurological Neurological: Denies numbness, Denies weakness - Psychiatric Psychiatric: Denies anxiety, Denies depression - Endocrine Endocrine: Denies fatigue, Denies weight change - Hematologic/Lymphatic Comment: baby aspirin daily - Allergic/Immunologic Allergic/Immunologic: Reports as per HPI Objective - Constitutional General appearance: Present: cooperative - EENT Eyes: Present: EOMI ENT: Present: hearing grossly normal - Neck Neck: Present: normal ROM - Respiratory Respiratory: bilateral: CTA - Cardiovascular Rhythm: regular Heart sounds: normal: S1, S2 - Integumentary Integumentary: Present: normal turgor - Musculoskeletal Musculoskeletal: Present: gait normal - Psychiatric Psychiatric: Present: A&O x's 3, appropriate affect, intact judgment & insight - Additional findings Additional findings: Breast Exam: BRA: not wearing one at this time inspection: bilateral incisions related to prior skin sparing mastectomy, patient has bilateral expanders in place, radiation changes right breast Palpation: Right breast: Multi-positional exam Post radiation changes, no dominant masses or nodules of concern, no evidence of any recurrence of cancer; rash at the old nipple areolar site the patient states that this comes and goes Right axilla: No adenopathy of concern Left breast: Multi-positional exam post operative changes no evidence of any lumps masses or nodules of concern Left axilla: No adenopathy of concern Assessment and Plan Assessment: impression: Patient doing well status post bilateral skin sparing mastectomies for invasive ductal carcinoma. On the right breast the invasive ductal carcinoma was close to the skin margin with a positive margin and she underwent radiation therapy. She has completed 6 weeks of radiation therapy and is presently on tamoxifen, she will see Dr. Norman Grider he will consider changing her from tamoxifen to anastrozole in the next year Some minimal decreased mobility of the right shoulder has resolved slight rash at incision site right breast/following Plan: will see Dr. Alan in December for removal of expanders Follow-up with medical oncology Follow-up here in 6 months Follow-up sooner any questions or concerns; follow up in two months if rash is still present CC: DR. Miguel Angel Osman Additional CC's: Miguel Angel Osman
== END ==
LOC: WWCWWP 15:34
PROVIDERS: ATTEND Surgery
DX: C50.111 Malignant neoplasm of central portion of right female breast (principal); I10 Essential (primary) hypertension; Z17.0 Estrogen receptor positive status [ER+]; Z80.3 Family history of malignant neoplasm of breast; Z85.3 Personal history of malignant neoplasm of breast; Z79.899 Other long term (current) drug therapy

== ENCOUNTER → 2023-04-13 | Outpatient (CLI) | payer BC ==
--- NOTE | 2023-04-13 11:00 | USB ---
Reason for Exam: Follow-up of a probably benign lesion. Patient History: Breast cancer, right, age 51. 10/07/2022, Benign US biopsy breast VAD RT on the right side. 11/04/2021, Malignant US biopsy breast VAD RT on the right side. 10/02/2021, Ultrasound-Guided Core Biopsy on the Right side. Technique: Method: Targeted. Prior Study Comparison: 08/05/2021 Bilateral MG screening mammo w CAD - 2, [facility]. 08/12/2021 Right MG 3D diag mammo w/cad RT - 2, [facility]. 11/04/2021 Right MG diagnostic mammo RT wo CAD, [facility]. 09/23/2022 Right US breast RT, [facility]. Findings: The axilla of the right breast and the retroareolar of the right breast were scanned. Technique utilized:US breast axilla RT Image; Ultrasound imaging of: All 4 quadrants, the retroareolar region and axilla. Lymph nodes seen in the left axilla which are morphologically normal with fatty hilum. Breast implant present. No evidence for organizing fluid collection or mass. Overall Assessment: Benign, BI-RAD 2 Management: Screening Mammogram of both breasts in 1 year. A clinical breast exam by your physician is recommended on an annual basis and results should be correlated with mammographic findings. This exam should not preclude additional follow-up of suspicious palpable abnormalities. Results were given to the patient verbally at the time of exam. Electronically signed and approved by: Az Farley DO
== END | disposition home or self-care (01) ==
LOC: RADUSWWP 10:16
PROVIDERS: ATTEND Surgery
DX: Z85.3 Personal history of malignant neoplasm of breast (principal); Z98.82 Breast implant status

== ENCOUNTER → 2023-05-14 | Outpatient (CLI) | payer BC ==
[2023-05-14 08:49] VITALS: BP 158/97; PULSE 87; RESP 18; TEMP 97.7
--- NOTE | 2023-05-14 09:29 | P.PN ---
Subjective Progress Note Date: 05/14/23 11/19/22 stage IA right breast invasive ductal cancer 2021 multifocal invasive ductal carcinoma of the right breast Angelica is a 51-year-old white female seen in consultation for Clarice Liao regarding a radiographic abnormality of the right breast. [place] [address] which revealed architectural distortion in the right breast at the 1 o'clock position. There was a suggestion of an irregular spiculated mass. She subsequently [place] [address]. A possible area of 1.2 cm distortion in the posterior 1 o'clock position right breast persisted. Ultrasound evaluation was then recommended. [place] [address]. No discrete solid or cystic area was identified. Patient did not feel any discrete lumps masses or nodules of concern in either breast. She states she does feel some pulling near the nipple in the right breast. She had never had any surgery on her breast in the past. She underwent an ultrasound core biopsy on 10-02-21 which was + for G1 invasive ductal cancer.T1N0M0 ER+Pr+Her2-, stage IA. She tolerated the procedure without difficulty[place] [address]. This revealed a spiculated enhancing lesion in the right breast as well as a smaller oval well- circumscribed 6 mm lesion in the upper inner quadrant more posterior. [place] [address] and was positive for invasive well-differentiated ductal carcinoma. This was a G1 ER/PA positive HER-2/tres negative tumor. Secondary to 2 primaries in the same breast the concern was entertained for a mastectomy rather than a lumpectomy. No lesions of concern were identified in the left breast. Her case was presented at tumor board on 10-28-21. The results are consistent with multifocal disease in the right breast. She had genetic testing done which was negative. The patient opted for bilateral mastectomy and right SNB which was done on 12-02-21. Left mastectomy revealed benign breast with fibrocystic changes, the right breast revealed invasive well-differentiated ductal carcinoma low-grade DCIS. 7 axillary lymph nodes were removed one had microscopic disease. Additional breast tissue was removed from the right area which did reveal invasive well- differentiated ductal carcinoma low-grade DCIS. Invasive tumor involved the cauterized resection margin however the margin was to the subcutaneous tissue and therefore she was treated with radiation therapy. Oncotype score of 6 and did not have any chemotherapy. She is taking tamoxifen at this time. 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 She still has bilateral expanders in place she will have them replaced in December. Patient did have physical therapy after her initial surgery and did well with this secondary to decreased mobility of her right arm. Range of motion is back to normal at this time. Note Dr. Andrez Grider 10-14-22 reviewed Note radiation oncology 09-08-22 reviewed 05-14-23 The patient is a 53-year-old white female who was diagnosed with stage IA right breast invasive ductal carcinoma. She underwent a bilateral nipple sparing mastectomy and . Left mastectomy benign breast with fibrocystic changes, right breast invasive well-differentiated ductal carcinoma low-grade DCIS. 7 axillary nodes removed one had microscopic disease. Additional breast tissue was removed from the right chest wall area which did reveal invasive well-differentiated ductal carcinoma low-grade DCIS. Invasive tumor involved the cauterized resection margin however the margin was in the subcutaneous tissue and she was treated with radiation therapy. Oncotype diagnosis score of 6 She completed 6 cycles of adjuvant radiation therapy on [id number] At this time she is on tamoxifen She is being followed by medical oncology, once her estradiol and FSH levels are consistent with postmenopausal levels she will be switched to anastrozole. She underwent a right ultrasound of the axilla on 1119 patient was personally reviewed with radiology and did not show any lesions of concern. medical oncology [id number] reviewed She is complaining of a nodule on her left shoulder, this has been present for about two months, it started after irritation from Vicryl on her bra. Patient is not complaining of any new lumps masses or nodules of concern on either chest wall. She did have her expanders removed and bilateral implants placed. Caffeine: 2 cups/day nicotine: stopped 10 years ago, used to smoke 1/PPD for 20 years chocolate: none BCP: stopped 20 years ago, used them for about 10 years hormones: none Family History: patient skin cancer on foot 2 brothers; skin cancer mother: skin cancer paternal aunt: breast cancer Hormonal History: menarche: 13 G0 menopause: periods still regular hormones: none Surgical History: tonsil foot done in office wisdom teeth Medical History: HTN Social History: Imaging: Negative, stopped 10 years ago Alcohol: weekends, 20 beers on weekend drugs: none - Constitutional Constitutional: Denies chills, Denies fever - EENT Eyes: denies blurred vision, denies pain Ears: deny: decreased hearing, tinnitus Ears, nose, mouth and throat: Denies headache, Denies sore throat - Breasts Breasts: bilateral: as per HPI - Cardiovascular Cardiovascular: Denies chest pain, Denies shortness of breath - Respiratory Respiratory: Denies cough - Genitourinary (Female) Genitourinary: Denies dysuria, Denies hematuria - Menstruation Menstruation: Reports period normal - Musculoskeletal Musculoskeletal: Denies myalgias - Integumentary Integumentary: Reports as per HPI - Neurological Neurological: Denies numbness, Denies weakness - Psychiatric Psychiatric: Denies anxiety, Denies depression - Endocrine Endocrine: Denies fatigue, Denies weight change - Hematologic/Lymphatic Comment: baby aspirin daily - Allergic/Immunologic Allergic/Immunologic: Reports as per HPI Objective - Vital Signs Vital signs: Vital Signs Temp 97.7 F 05/14/23 08:42 Pulse 87 05/14/23 08:42 Resp 18 05/14/23 08:42 BP 158/97 05/14/23 08:42 Pulse Ox 100 05/14/23 08:42 FiO2 Intake & Output 05/13/23 05/14/23 05/14/23 18:59 06:59 18:59 Weight 72.575 kg - Constitutional General appearance: Present: cooperative - EENT Eyes: Present: EOMI ENT: Present: hearing grossly normal - Neck Neck: Present: normal ROM - Respiratory Respiratory: bilateral: CTA - Cardiovascular Heart sounds: normal: S1, S2 - Integumentary Integumentary: Present: normal turgor - Musculoskeletal Musculoskeletal: Present: gait normal - Psychiatric Psychiatric: Present: A&O x's 3, appropriate affect, intact judgment & insight - Additional findings Additional findings: Breast Exam: BRA: 36C inspection: bilateral incisions related to prior skin sparing mastectomy, patient has bilateral reconstruction, radiation changes right breast Palpation: Right breast: Multi-positional exam Post radiation changes, no dominant masses or nodules of concern, no evidence of any recurrence of cancer; rash at the old nipple areolar site the patient states that this comes and goes; on the right chest wall is dry Right axilla: No adenopathy of concern Left breast: Multi-positional exam post operative changes no evidence of any lumps masses or nodules of concern Left axilla: No adenopathy of concern Left shoulder approximately 1 cm area of protuberance which was near the area of irritation related to her block and appears to have sebum and/or purulent material, this was expressed and the area has decompressed Assessment and Plan Assessment: impression: Patient doing well status post bilateral skin sparing mastectomies for invasive ductal carcinoma. On the right breast the invasive ductal carcinoma was close to the skin margin with a positive margin and she underwent radiation therapy. She has completed 6 weeks of radiation therapy and is presently on tamoxifen, she will see Dr. Norman Grider he will consider changing her from tamoxifen to anastrozole after she goes through menopause Lesion left shoulder/inflammatory versus sebaceous cyst she is going to follow with dermatology in May Some minimal decreased mobility of the right shoulder has resolved slight rash at incision site right breast/following Plan: Dermatology Follow-up with medical oncology Follow-up here in 6 weeks Follow-up sooner any questions or concerns; follow up in two months if rash is still present CC: DR. Miguel Angel Osman Additional CC's: Miguel Angel Osman
== END ==
LOC: WWCWWP 08:38
PROVIDERS: ATTEND Surgery
DX: C50.911 Malignant neoplasm of unspecified site of right female breast (principal); Z80.3 Family history of malignant neoplasm of breast; Z17.0 Estrogen receptor positive status [ER+]; Z90.13 Acquired absence of bilateral breasts and nipples; Z92.3 Personal history of irradiation; Z87.891 Personal history of nicotine dependence; I10 Essential (primary) hypertension; Z79.899 Other long term (current) drug therapy

== ENCOUNTER → 2023-06-25 | Outpatient (CLI) | payer BC | LOC: WWCWWP 09:15 | PROVIDERS: ATTEND Surgery | DX: Z53.9 Procedure and treatment not carried out, unspecified reason (principal) ==

== ENCOUNTER → 2023-11-04 | Outpatient (CLI) | payer BC ==
[2023-11-04 08:53] VITALS: BP 155/83; PULSE 76; RESP 17; TEMP 97.9
--- NOTE | 2023-11-04 09:36 | P.PN ---
Subjective Progress Note Date: 11/04/23 Principal diagnosis: stage IA right breast invasive ductal, multifocal cancer 05/14/23 11/19/22 stage IA right breast invasive ductal cancer 2021; !B/!A, (pT1c(2), pN1mi(sn), CM0, ER+Pr+Her2-G1 multifocal invasive ductal carcinoma of the right breast Angelica is a 51-year-old white female seen in consultation for Clarice Liao regarding a radiographic abnormality of the right breast. [place] [address] which revealed architectural distorti on in the right breast at the 1 o'clock position. There was a suggestion of an irregular spiculated mass. She subsequently [place] [address]. A possible area of 1.2 cm distortion in the posterior 1 o'clock position right breast persisted. Ultrasound evaluation was then recommended. [place] [address]. No discrete solid or cystic area was identified. Patient did not feel any discrete lumps masses or nodules of concern in either breast. She states she does feel some pulling near the nipple in the right breast. She had never had any surgery on her breast in the past. She underwent an ultrasound core biopsy on 10-02-21 which was + for G1 invasive ductal cancer.T1N0M0 ER+Pr+Her2-, stage IA. She tolerated the procedure without difficulty. [place] [address]. This revealed a spiculated enhancing lesion in the right breast as well as a smaller oval well- circumscribed 6 mm lesion in the upper inner quadrant more posterior. [place] [address] and was positive for invasive well-differentiated ductal carcinoma. This was a G1 ER/MD positive HER-2/tres negative tumor. Secondary to 2 primaries in the same breast the concern was entertained for a mastectomy rather than a lumpectomy. No lesions of concern were identified in the left breast. Her case was presented at tumor board on 10-28-21. The results are consistent with multifocal disease in the right breast. She had genetic testing done which was negative. The patient opted for bilateral mastectomy and right SNB which was done on 12-02-21. Left mastectomy revealed benign breast with fibrocystic changes, the right breast revealed invasive well-differentiated ductal carcinoma low-grade DCIS. 7 axillary lymph nodes were removed one had microscopic disease. Additional breast tissue was removed from the right area which did reveal invasive well- differentiated ductal carcinoma low-grade DCIS. Invasive tumor involved the cauterized resection margin however the margin was to the subcutaneous tissue and therefore she was treated with radiation therapy. Oncotype score of 6 and did not have any chemotherapy. She is taking tamoxifen at this time. She completed 6 weeks of adjuvant radiation therapy on [id number] with 60 burr total which she tolerated well She initiated adjuvant endocrine therapy with tamoxifen in March 14 which she is tolerating well The plan is to switch to an aromatase inhibitor after 1 year of treatment with tamoxifen Bilateral tissue front office representative surgery tentatively scheduled for 12-23-22 Breast ultrasound on 5422 was initially concerning for suspicious right axillary lymph node which was biopsied and found to be benign on She is not complaining of any problems related to her breast. She still has bilateral expanders in place she will have them replaced in December. Patient did have physical therapy after her initial surgery and did well with this secondary to decreased mobility of her right arm. Range of motion is back to normal at this time. Note Dr. Andrez Grider 10-14-22 reviewed Note radiation oncology 09-08-22 reviewed 05-14-23 The patient is a 53-year-old white female who was diagnosed with stage IA right breast invasive ductal carcinoma. She underwent a bilateral nipple sparing mastectomy and . Left mastectomy benign breast with fibrocystic changes, right breast invasive well-differentiated ductal carcinoma low-grade DCIS. 7 axillary nodes removed one had microscopic disease. Additional breast tissue was removed from the right chest wall area which did reveal invasive well-differentiated ductal carcinoma low-grade DCIS. Invasive tumor involved the cauterized resection margin however the margin was in the subcutaneous tissue and she was treated with radiation therapy. Oncotype diagnosis score of 6 She completed 6 cycles of adjuvant radiation therapy on [id number] At this time she is on tamoxifen She is being followed by medical oncology, once her estradiol and FSH levels are consistent with postmenopausal levels she will be switched to anastrozole. She underwent a right ultrasound of the axilla on 1119 patient was personally reviewed with radiology and did not show any lesions of concern. medical oncology [id number] reviewed She is complaining of a nodule on her left shoulder, this has been present for about two months, it started after irritation from Vicryl on her bra. Patient is not complaining of any new lumps masses or nodules of concern on either chest wall. She did have her expanders removed and bilateral implants placed. 11-04-23 The patient is a 53-year-old white female who was diagnosed with stage IA right breast invasive ductal carcinoma. She underwent a bilateral n[place] [id number]. Left mastectomy benign breast with fibrocystic changes, right breast invasive well-differentiated ductal carcinoma low-grade DCIS. 7 axillary nodes removed one had microscopic disease. Additional breast tissue was removed from the right chest wall area which did reveal invasive well-differentiated ductal carcinoma low-grade DCIS. Invasive tumor involved the cauterized resection margin however the margin was in the subcutaneous tissue and she was treated with radiation therapy. Oncotype diagnosis score of 6 She completed 6 cycles of adjuvant radiation therapy on [id number] At this time she is on tamoxifen She is being followed by medical oncology, once her estradiol and FSH levels are consistent with postmenopausal levels she will be switched to anastrozole. She underwent a right ultrasound of the axilla on 1119 patient was personally reviewed with radiology and did not show any lesions of concern. medical oncology 08-12-23 reviewed; estradiol, FSH, and LH obtained would consider switch to anestrazole from tamoxifen; she was told she is still pre- menopausal she has not had a period since 02-01-23 radiation oncology 09-07-23 reviewed She was complaining of a nodule on her left shoulder, this has been present for about two months, it started after irritation from Vicryl on her bra.; Since resolved completely it was drained on her last visit. Patient is not complaining of any new lumps masses or nodules of concern on either chest wall. She did have her expanders removed and bilateral implants placed. Complain of some intermittent tingling in the lateral aspect of her right arm. Discussed physical therapy and at this time she has declined. There continues to be some dryness of the incision site at the right mastectomy site which she has followed with dermatology. This has improved. It is felt to be most likely related to the radiation skin changes. Creams on this daily with improvement of the dryness. Caffeine: 2 cups/day nicotine: stopped 10 years ago, used to smoke 1/PPD for 20 years chocolate: none BCP: stopped 20 years ago, used them for about 10 years hormones: none Family History: patient skin cancer on foot 2 brothers; skin cancer mother: skin cancer paternal aunt: breast cancer Hormonal History: menarche: 13 G0 menopause: periods still regular hormones: none Surgical History: tonsil foot done in office wisdom teeth Medical History: HTN Social History: Imaging: Negative, stopped 10 years ago Alcohol: weekends, 20 beers on weekend drugs: none - Constitutional Constitutional: Denies chills, Denies fever - EENT Eyes: denies blurred vision, denies pain Ears: deny: decreased hearing, tinnitus Ears, nose, mouth and throat: Denies headache, Denies sore throat - Breasts Breasts: bilateral: as per HPI - Cardiovascular Cardiovascular: Denies chest pain, Denies shortness of breath - Respiratory Respiratory: Denies cough - Genitourinary (Female) Genitourinary: Denies dysuria, Denies hematuria - Menstruation Menstruation: Reports period normal - Musculoskeletal Musculoskeletal: Denies myalgias - Integumentary Integumentary: Reports as per HPI - Neurological Neurological: Denies numbness, Denies weakness - Psychiatric Psychiatric: Denies anxiety, Denies depression - Endocrine Endocrine: Denies fatigue, Denies weight change - Hematologic/Lymphatic Comment: baby aspirin daily - Allergic/Immunologic Allergic/Immunologic: Reports as per HPI Objective - Vital Signs Vital signs: Vital Signs Temp 97.9 F 11/04/23 08:51 Pulse 76 11/04/23 08:51 Resp 17 11/04/23 08:51 BP 155/83 11/04/23 08:51 Pulse Ox 100 11/04/23 08:51 FiO2 Intake & Output 11/03/23 11/04/23 11/04/23 18:59 06:59 18:59 Weight 73.482 kg - Constitutional General appearance: Present: cooperative - EENT Eyes: Present: EOMI ENT: Present: hearing grossly normal - Neck Neck: Present: normal ROM - Respiratory Respiratory: bilateral: CTA - Cardiovascular Heart sounds: normal: S1, S2 - Gastrointestinal General gastrointestinal: Present: soft - Integumentary Integumentary: Present: normal turgor - Musculoskeletal Musculoskeletal: Present: gait normal - Psychiatric Psychiatric: Present: A&O x's 3, appropriate affect, intact judgment & insight - Additional findings Additional findings: Breast Exam: BRA: 36C inspection: bilateral incisions related to prior skin sparing mastectomy, patient has bilateral reconstruction, radiation changes right breast Palpation: Right breast: Multi-positional exam Post radiation changes, no dominant masses or nodules of concern, no evidence of any recurrence of cancer; rash at the old nipple areolar site the patient states that this comes and goes; on the right chest wall is dry Right axilla: No adenopathy of concern Left breast: Multi-positional exam post operative changes no evidence of any lumps masses or nodules of concern Left axilla: No adenopathy of concern Left shoulder approximately 1 cm area of protuberance which was near the area of irritation related to her block and appears to have sebum and/or purulent material, this was expressed on her last visit and the area has decompressed completely resolved Assessment and Plan Assessment: Impression: Patient doing well status post bilateral skin sparing mastectomies for invasive ductal carcinoma. On the right breast the invasive ductal carcinoma was close to the skin margin with a positive margin and she underwent radiation therapy. She has completed 6 weeks of radiation therapy and is presently on tamoxifen, she will see Dr. Norman Grider he will consider changing her from tamoxifen to anastrozole after she goes through menopause Lesion left shoulder/inflammatory solved Continues to have some dry skin over the right mastectomy site which is proved and she follows with dermatology Some minimal decreased mobility of the right shoulder has resolved; intermittent feeling of numbness in the lateral aspect of the right arm and in the thenar eminence, we have discussed physical therapy and at this time she has declined slight rash at incision site proved, following with dermatology Plan: Dermatology Follow-up with medical oncology Follow-up here in 6 months Follow-up sooner any questions or concerns CC: DR. Miguel Angel Osman
== END ==
LOC: WWCWWP 08:34
PROVIDERS: ATTEND Surgery
DX: C50.911 Malignant neoplasm of unspecified site of right female breast (principal); N60.11 Diffuse cystic mastopathy of right breast; Z17.0 Estrogen receptor positive status [ER+]; Z87.891 Personal history of nicotine dependence; Z92.3 Personal history of irradiation; Z80.3 Family history of malignant neoplasm of breast; Z90.13 Acquired absence of bilateral breasts and nipples

== ENCOUNTER → 2024-05-11 | Outpatient (CLI) | payer BC | LOC: WWCWWP 09:18 | PROVIDERS: ATTEND Surgery | DX: Z85.3 Personal history of malignant neoplasm of breast (principal) ==

== ENCOUNTER → 2024-06-08 | Outpatient (CLI) | payer BC ==
[2024-06-08 15:27] VITALS: BP 136/82; PULSE 84; RESP 17; TEMP 97.2
--- NOTE | 2024-06-08 15:43 | P.PN ---
Subjective Progress Note Date: 06/08/24 11/04/23 Principal diagnosis: stage IA right breast invasive ductal, multifocal cancer 05/14/23 11/19/22 stage IA right breast invasive ductal cancer 2021; !B/!A, (pT1c(2), pN1mi(sn), CM0, ER+Pr+Her2-G1 multifocal invasive ductal carcinoma of the right breast Angelica is a 51-year-old white female seen in consultation for Clarice Liao regarding a radiographic abnormality of the right breast. [place] [address] which revealed architectural distortion in the right breast at the 1 o'clock position. There was a suggestion of an irregular spiculated mass. She subsequently [place] [address]. A possible area of 1.2 cm distortion in the posterior 1 o'clock position right breast persisted. Ultrasound evaluation was then recommended. [place] [address]. No discrete solid or cystic area was identified. Patient did not feel any discrete lumps masses or nodules of concern in either breast. She states she does feel some pulling near the nipple in the right breast. She had never had any surgery on her breast in the past. She underwent an ultrasound core biopsy on 10-02-21 which was + for G1 invasive ductal cancer.T1N0M0 ER+Pr+Her2-, stage IA. She tolerated the procedure without difficulty[place] [address]. This revealed a spiculated enhancing lesion in the right breast as well as a smaller oval well- circumscribed 6 mm lesion in the upper inner quadrant more posterior. [place] [address] and was positive for invasive well-differentiated ductal carcinoma. This was a G1 ER/[place] positive HER-2/tres negative tumor. Secondary to 2 primaries in the same breast the concern was entertained for a mastectomy rather than a lumpectomy. No lesions of concern were identified in the left breast. Her case was presented at tumor board on 10-28-21. The results are consistent with multifocal disease in the right breast. She had genetic testing done which was negative. The patient opted for bilateral mastectomy and right SNB which was done on 12-02-21. Left mastectomy revealed benign breast with fibrocystic changes, the right breast revealed invasive well-differentiated ductal carcinoma low-grade DCIS. 7 axillary lymph nodes were removed one had microscopic disease. Additional breast tissue was removed from the right area which did reveal invasive well- differentiated ductal carcinoma low-grade DCIS. Invasive tumor involved the cauterized resection margin however the margin was to the subcutaneous tissue and therefore she was treated with radiation therapy. Oncotype score of 6 and did not have any chemotherapy. She is taking tamoxifen at this time. She completed 6 weeks of adjuvant radiation therapy on [id number] with 60 burr total which she tolerated well She initiated adjuvant endocrine therapy with tamoxifen in March 14 which she is tolerating well The plan is to switch to an aromatase inhibitor after 1 year of treatment with tamoxifen Bilateral tissue jingle writer surgery tentatively scheduled for 12-23-22 Breast ultrasound on 5422 was initially concerning for suspicious right axillary lymph node which was biopsied and found to be benign on She is not complaining of any problems related to her breast. She still has bilateral expanders in place she will have them replaced in December. Patient did have physical therapy after her initial surgery and did well with this secondary to decreased mobility of her right arm. Range of motion is back to normal at this time. Note Dr. Andrez Grider 10-14-22 reviewed Note radiation oncology 09-08-22 reviewed 05-14-23 The patient is a 53-year-old white female who was diagnosed with stage IA right breast invasive ductal carcinoma. She underwent a bilateral nipple sparing mastectomy and . Left mastectomy benign breast with fibrocystic changes, right breast invasive well-differentiated ductal carcinoma low-grade DCIS. 7 axillary nodes removed one had microscopic disease. Additional breast tissue was removed from the right chest wall area which did reveal invasive well-differentiated ductal carcinoma low-grade DCIS. Invasive tumor involved the cauterized resection margin however the margin was in the subcutaneous tissue and she was treated with radiation therapy. Oncotype diagnosis score of 6 She completed 6 cycles of adjuvant radiation therapy on [id number] At this time she is on tamoxifen She is being followed by medical oncology, once her estradiol and FSH levels are consistent with postmenopausal levels she will be switched to anastrozole. She underwent a right ultrasound of the axilla on 1119 patient was personally reviewed with radiology and did not show any lesions of concern. medical oncology [id number] reviewed She is complaining of a nodule on her left shoulder, this has been present for about two months, it started after irritation from Vicryl on her bra. Patient is not complaining of any new lumps masses or nodules of concern on either chest wall. She did have her expanders removed and bilateral implants placed. 11-04-23 The patient is a 53-year-old white female who was diagnosed with stage IA right breast invasive ductal carcinoma. She underwent a bilateral nipple sparing mastectomy and . Left mastectomy benign breast with fibrocystic changes, right breast invasive well-differentiated ductal carcinoma low-grade DCIS. 7 axillary nodes removed one had microscopic disease. Additional breast tissue was removed from the right chest wall area which did reveal invasive well-differentiated ductal carc inoma low-grade DCIS. Invasive tumor involved the cauterized resection margin however the margin was in the subcutaneous tissue and she was treated with radiation therapy. Oncotype diagnosis score of 6 She completed 6 cycles of adjuvant radiation therapy on [id number] At this time she is on tamoxifen She is being followed by medical oncology, once her estradiol and FSH levels are consistent with postmenopausal levels she will be switched to anastrozole. She underwent a right ultrasound of the axilla on 1119 patient was personally reviewed with radiology and did not show any lesions of concern. medical oncology 08-12-23 reviewed; estradiol, FSH, and LH obtained would consider switch to anestrazole from tamoxifen; she was told she is still pre- menopausal she has not had a period since 02-01-23 radiation oncology 09-07-23 reviewed She was complaining of a nodule on her left shoulder, this has been present for about two months, it started after irritation from Vicryl on her bra.; Since resolved completely it was drained on her last visit. Patient is not complaining of any new lumps masses or nodules of concern on either chest wall. She did have her expanders removed and bilateral implants placed. Complain of some intermittent tingling in the lateral aspect of her right arm. Discussed physical therapy and at this time she has declined. There continues to be some dryness of the incision site at the right mastectomy site which she has followed with dermatology. This has improved. It is felt to be most likely related to the radiation skin changes. Creams on this daily with improvement of the dryness. 06-08-24 Angelica is a 54 year old female diagnosed with stage Ia invasive ductal carcinoma of the right breast in 2021. She underwent a bilateral nipple sparing mastectomy 12-02-21 Left mastectomy: Benign breast with fibrocystic changes Right mastectomy: Invasive well-differentiated ductal carcinoma, low-grade DCIS, 7 axillary nodes 1 microscopic disease, additional breast tissue was removed from the right chest wall and revealed invasive well-differentiated ductal carcinoma and low-grade DCIS. Invasive tumor involve the cauterized resection margin however this was in the subcutaneous tissue and she was treated with radiation therapy. Oncotype score 6 She completed 6 cycles of adjuvant radiation therapy note medical oncology 04-17-24 reviewed: Not had a menstrual cycle since 01-31-2023. She considered to switch from tamoxifen to anastrozole; at the visit with medical oncology she was; she has opted to stay on tamoxifen for several more years complaining of some right axillary irritation She is not concerned about any new lumps, masses or nodules on either chest wall Caffeine: 2 cups/day nicotine: stopped 10 years ago, used to smoke 1/PPD for 20 years chocolate: none BCP: stopped 20 years ago, used them for about 10 years hormones: none Family History: patient skin cancer on foot 2 brothers; skin cancer mother: skin cancer paternal aunt: breast cancer Hormonal History: menarche: 13 G0 menopause: periods still regular hormones: none Surgical History: tonsil foot done in office wisdom teeth bilateral mastectomies, bilateral breast reconstructions Medical History: HTN Social History: Imaging: Negative, stopped 12 years ago Alcohol: weekends, 20 beers on weekend drugs: none - Constitutional Constitutional: Denies chills, Denies fever - EENT Eyes: denies blurred vision, denies pain Ears: deny: decreased hearing, tinnitus Ears, nose, mouth and throat: Denies headache, Denies sore throat - Breasts Breasts: bilateral: as per HPI - Cardiovascular Cardiovascular: Denies chest pain, Denies shortness of breath - Respiratory Respiratory: Denies cough - Genitourinary (Female) Genitourinary: Denies dysuria, Denies hematuria - Menstruation Menstruation: Reports period normal - Musculoskeletal Musculoskeletal: Denies myalgias - Integumentary Integumentary: Reports as per HPI - Neurological Neurological: Denies numbness, Denies weakness - Psychiatric Psychiatric: Denies anxiety, Denies depression - Endocrine Endocrine: Denies fatigue, Denies weight change - Hematologic/Lymphatic Comment: baby aspirin daily - Allergic/Immunologic Allergic/Immunologic: Reports as per HPI Objective - Constitutional General appearance: Present: cooperative - EENT Eyes: Present: EOMI ENT: Present: hearing grossly normal - Neck Neck: Present: normal ROM - Respiratory Respiratory: bilateral: CTA - Cardiovascular Rhythm: regular Heart sounds: normal: S1, S2 - Integumentary Integumentary: Present: normal turgor - Musculoskeletal Musculoskeletal: Present: gait normal - Psychiatric Psychiatric: Present: A&O x's 3, appropriate affect, intact judgment & insight - Additional findings Additional findings: Breast Exam: BRA: 36C inspection: bilateral incisions related to prior skin sparing mastectomy, patient has bilateral reconstruction, radiation changes right breast Palpation: Right breast: Multi-positional exam Post radiation changes, no dominant masses or nodules of concern, no evidence of any recurrence of cancer; rash at the old nipple areolar site the patient states that this comes and goes; on the right chest wall is dry Right axilla: No adenopathy of concern Left breast: Multi-positional exam post operative changes no evidence of any lumps masses or nodules of concern Left axilla: No adenopathy of concern Assessment and Plan Assessment: Impression: Patient doing well status post bilateral skin sparing mastectomies for invasive ductal carcinoma. On the right breast the invasive ductal carcinoma was close to the skin margin with a positive margin and she underwent radiation therapy. She has completed 6 weeks of radiation therapy and is presently on tamoxifen, Lesion left shoulder/inflammatory solved Continues to have some dry skin over the right mastectomy site which is improved and she follows with dermatology slight rash at incision site improved, following with dermatology Plan: Dermatology Follow-up with medical oncology Follow-up here in 6 months MRI chest wall also include axilla then follow up after done Follow-up sooner any questions or concerns CC: DR. Miguel Angel Osman
== END ==
LOC: WWCWWP 15:19
PROVIDERS: ATTEND Surgery
DX: C50.911 Malignant neoplasm of unspecified site of right female breast (principal); Z90.12 Acquired absence of left breast and nipple; Z92.3 Personal history of irradiation; Z80.3 Family history of malignant neoplasm of breast

== ENCOUNTER → 2024-07-25 | Outpatient (CLI) | payer BC ==
--- NOTE | 2024-07-25 09:42 | CT ---
EXAMINATION TYPE: CT chest w con DATE OF EXAM: 07/25/2024 9:32 AM COMPARISON: 05/01/2011 CLINICAL INDICATION: Female, 54 years old with history of Z85.3 History of breast CA; PHH, abnormal f indings of right lung TECHNIQUE: Multiple axial images were obtained through the chest. Sagittal and coronal reformats were created for review. MIP was performed on a separate workstation. Contrast used:100 mL of Isovue 300 with IV Contrast (None if empty) Oral contrast used: (None if empty) CT DLP: 268.4 mGycm, Automated exposure control for dose reduction was used. FINDINGS: LUNGS/ PLEURA: No focal consolidation, pneumothorax or pleural effusion. Right upper lobe masslike co nsolidation measuring 20 x 23 mm with flat appearance on sagittal imaging. Additionally there is some scarring atelectasis along the periphery of the anterior right lung. AIRWAY: Patent and unremarkable. HEART: Size within normal limits. No significant coronary artery calcifications. MEDIASTINUM: No gross evidence of adenopathy. VASCULATURE: No aortic aneurysm. MUSCULOSKELETAL: No acute osseous abnormalities SOFT TISSUES/LYMPH NODES: Bilateral breast implants appear intact. LOWER NECK: No significant findings. UPPER ABDOMEN: Left renal cortical probable cyst. IMPRESSION: 1. Consolidation changes in the right lung apex with a flat appearance on sagittal imaging suggestin g scarring/atelectasis with mass felt to be less likely. Consider short-term follow-up imaging versus pet/CT. 2. Bilateral breast implants appear intact. Scarring along the anterior right chest wall likely rela sukhi to treatment changes. [facility], , 07/25/2024 9:40 AM
== END | disposition home or self-care (01) ==
LOC: RADCTMAIN 08:46
PROVIDERS: ATTEND Surgery
DX: R91.8 Other nonspecific abnormal finding of lung field (principal); Z98.82 Breast implant status; Z85.3 Personal history of malignant neoplasm of breast
CPT/HCPCS: 71260; Q9967

== ENCOUNTER → 2024-08-24 | Outpatient (CLI) | payer BC ==
--- NOTE | 2024-08-24 10:21 | PE ---
EXAMINATION TYPE: PET CT fusion skull to thigh DATE OF EXAM: 08/24/2024 CLINICAL INDICATION:Female, 54 years old with history of Z85.3 personal hx breast ca; TECHNIQUE: Following the intravenous administration of 11.79 mCi of F-18 FDG, whole body images are performed from the skull base to the Mid thigh. Images are reviewed on the computer in the coronal, axial, and sagittal planes. Reconstructed rotating images are created on independent workstation an d reviewed on the computer. A non-contrast CT is performed in conjunction with the PET scan. Glucos e level 104 mg/dL CT DLP: 429 mGycm, Automated exposure control for dose reduction was used. COMPARISON: CT 07/25/2024, PET/CT None, MRI: None FINDINGS: Mediastinal SUV mean is 2.1. Hepatic parenchyma SUV mean is 2.90. SKULL BASE AND NECK: No suspicious radiotracer activity. CHEST, MEDIASTINUM, AND HILAR REGION: No suspicious radiotracer activity. Mild uptake along the surgical margin of the breasts on the later al aspect on the left Max SUV 4.9 on the right max SUV 2.0. Suspected posttreatment changes to the right breast with some consolidation near the lung apex. Max S UV 3.0. ABDOMEN AND PELVIS: No suspicious radiotracer activity. MUSCULOSKELETAL STRUCTURES: No suspicious radiotracer activity. OTHER CT: Bilateral breast implants. Borderline Hepatic steatosis. Scattered colonic diverticula. The appendix normal. Tiny fat-containing umbilical hernia. IMPRESSION: 1. No suspicious radiotracer activity. 2. Posttreatment changes to the right upper lung suspected likely representing scarring. Mild FDG ac tivity present here. [facility], , 08/24/2024 10:19 AM
== END | disposition home or self-care (01) ==
LOC: RADPETMAIN 07:37
PROVIDERS: ATTEND Surgery
DX: Z85.3 Personal history of malignant neoplasm of breast (principal); Z98.890 Other specified postprocedural states
CPT/HCPCS: 78815; A9552